=== PATIENT | female | born 1980 | race Caucasian/White ===

== ENCOUNTER 2016-09-01 08:05 | Emergency (ER) | payer OTHER ==
[2016-09-01] MEDS ORDERED: ACETAMINOPHEN 325 MG TABLET PO STA (09:15)
[2016-09-01] MEDS ORDERED: ACETAMINOPHEN 325 MG TABLET PO ONE (09:20)
--- NOTE | 2016-09-01 09:27 | ED Physician Documentation ---
History of Present Illness - Stated complaint Stated Complaint: GLF - Chief complaint Chief Complaint: Ext Problem - Additonal information Additional information: hx [place] no head neck injury hurt R shoulder R elbow R knee denies preg s/p hyst Review of Systems Cardiac: denies: Chest pain / pressure : reports: Hysterectomy Musculoskeletal: reports: Extremity pain. 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 : None HEENT: None Psych: Anxiety, Bipolar disorder, Panic attacks, Post traumatic stress disorder Musculoskeletal: None Derm: None - Past Surgical History Past Surgical History: Yes General: Cholecystectomy Ortho: ACL reconstruction /MISSILE INSPECTOR PREFLIGHT: Tubal ligation, Hysterectomy Neuro: Other HEENT: Tonsil/Adenoidectomy - Present Medications Home Medications: Ambulatory Orders Medication Instructions Recorded Confirmed cloNIDine [Catapres] 0.2 mg PO DAILY 12/17/15 09/01/16 Ketorolac Tromethamine [Readysharp 2 ml INJ PRN PRN 09/01/16 09/01/16 Ketorolac] traZODone [Desyrel] 50 mg PO DAILY 09/01/16 09/01/16 - Allergies Allergies/Adverse Reactions: Allergies Allergy/AdvReac Type Severity Reaction Status Date / Time codeine Allergy Rash Verified 09/01/16 08:16 - Social History Does the pt smoke?: No Smoking Status: Never smoker Does the pt drink ETOH?: Yes Does the pt have substance abuse?: No - Immunizations Immunizations are current?: Yes - POLST Patient has POLST: No PD ED PE NORMAL - Vitals Vital signs reviewed: Yes - HEENT HEENT: Atraumatic - Neck Neck: No bony TTP - Cardiac Cardiac: RRR - Respiratory Respiratory: No respiratory distress, Clear bilaterally - Derm Derm: Normal color, Other (no lac or bruise) - Extremities Extremities: Other (R shoulder: TTP distal clavicle and ant shoulder, limited EBD and ext but int ext rot s pain. R elbow, TTP medial epicondyle, no swelling or deformit, able to fully range though with pain. MSV to RUE. R knee: _ effusin , no patellar or pat tendon TTP, no meidal jt line TTP, + lateral jt line TTP, no ACL MCL LCL laxity appreicated, diff to assess menisucs as ROM is limited by pain and effusion but no pop or catch. MSV intact) Results - Vitals Vitals: Vital Signs - 24 hr 09/01/16 09/01/16 08:10 09:22 Temperature 36.8 C 36.9 C Heart Rate 94 82 Respiratory 20 19 Rate Blood Pressure 148/112 H 155/99 H O2 Saturation 99 99 Oxygen O2 Source Room air - Rads (name of study) elbow Radiology: See rad report (neg) shoulder Radiology: See rad report (neg) knee Radiology: See rad report (no acute, prior ACL surg, degen changes, benign and unchanged tibial lesion, mild cortical irreg at tibial tub likely normal (and not where pt hurts)) Departure - Departure Clinical Impression: Contusion of elbow, right Qualifiers: Encounter type: initial encounter Qualified Code(s): S50.01XA - Contusion of right elbow, initial encounter Knee LCL sprain Qualifiers: Encounter type: initial encounter Laterality: right Qualified Code(s): S83.421A - Sprain of lateral collateral ligament of right knee, initial encounter Shoulder sprain Qualifiers: Encounter type: initial encounter Shoulder sprain type: unspecified sprain Laterality: right Qualified Code(s): S43.401A - Unspecified sprain of right shoulder joint, initial encounter Condition: Good Instructions: ED Sprain Knee Collateral Ligaments, ED Sprain Shoulder, ED Contusion Elbow Comments: The xrays do not show any fractures. You have some bony abnormalities in the knee but they are not new and according to the radiologist they are benign Recommend a sling for your shoulder - please be sure to do some gentle range of motion every day to prevent the shoulder joint from forming scar tissue and "freezing" And a brace for your knee. Crutches will not work with your inured shoulder and elbow Recommend motrin ice and elevation for pain. And I wrote a note for work to be on limited duty Please follow up with your PMD for a recheck and consideration of further imaging if you are not back to full activity in two weeks And please have your PMD recheck your blood pressure - it was high today Forms: Activity restrictions
--- NOTE | 2016-09-01 09:49 | XRAY Report ---
EXAM: RIGHT KNEE RADIOGRAPHY EXAM DATE: 09/01/2016 08:53 AM. CLINICAL HISTORY: Fall. COMPARISON: [id number]. TECHNIQUE: 4 views. FINDINGS: There is redemonstration of postoperative changes of the right knee consistent with a previous ACL re construction. The appearance is similar to the previous study. Joint space narrowing and osteophyte f ormation is again noted in all 3 compartments of the knee. There is a small knee joint effusion. No d isplaced fracture is identified. There is redemonstration of a well-circumscribed cystic lesion in th e diaphysis of the proximal tibia measuring approximately 7 mm. The margins are well-circumscribed. T he appearance is unchanged when compared to the previous study. This is consistent with a benign fibr o-osseous lesion. Mild cortical irregularity is seen at the tibial tuberosity that most likely represents a normal find ing. If there is point tenderness, this may represent a fracture. Impression: Mild cortical irregularity at the tibial tuberosity most likely represents a normal finding. If there is point tenderness this may represent a fracture. Clinical correlation is recommended. Redemonstration of postoperative and mild degenerative changes of the right knee with a similar appea ryan to the previous study. Redemonstration of a well-circumscribed lesion in the tibia that most likely represents a benign fibr o-osseous lesion. Small knee joint effusion. [facility] Referring Provider Line: [phone] SITE ID: [id number]
--- NOTE | 2016-09-01 10:20 | XRAY Preliminary Report ---
Exam: XR Shoulder 3 View RT IMPRESSION: Normal shoulder radiography. [facility] SITE ID: [id number]
--- NOTE | 2016-09-01 10:21 | XRAY Preliminary Report ---
Exam: XR Elbow 3 View RT IMPRESSION: Normal elbow radiography. [facility] SITE ID: [id number]
--- NOTE | 2016-09-01 10:23 | XRAY Report ---
EXAM: RIGHT SHOULDER RADIOGRAPHY EXAM DATE: 09/01/2016 08:25 AM. CLINICAL HISTORY: Fall. COMPARISON: None. TECHNIQUE: 3 views. FINDINGS: Bones: Normal. No fracture or bone lesion. Joints: The glenohumeral and acromioclavicular joints are normal. Soft tissues: The visualized hemithorax is unremarkable. No soft tissue swelling. IMPRESSION: Normal shoulder radiography. [facility] Referring Provider Line: [phone] SITE ID: [id number]
--- NOTE | 2016-09-01 10:24 | XRAY Report ---
EXAM: RIGHT ELBOW RADIOGRAPHY EXAM DATE: 09/01/2016 08:25 AM. CLINICAL HISTORY: Fall. COMPARISON: None. TECHNIQUE: 3 views. FINDINGS: Bones: Normal. No fractures or bone lesions. Joints: Normal. No effusion. No subluxation. Soft Tissues: Normal. No soft tissue swelling. IMPRESSION: Normal elbow radiography. [facility] Referring Provider Line: [phone] SITE ID: [id number]
[2016-09-01 10:40] VITALS: BP 145/82
== END 2016-09-01 11:20 | disposition home or self-care (01) ==
LOC: ED 08:05
DX: S50.01XA Contusion of right elbow, initial encounter (principal); W01.0XXA Fall on same level from slipping, tripping and stumbling without subsequent striking against object, initial encounter; Y92.828 Other wilderness area as the place of occurrence of the external cause
CPT/HCPCS: 73030; 73080; 73564; 99283; A9270